=== PATIENT | male | born 1985 | race Caucasian/White ===

== ENCOUNTER 2024-11-27 14:45 | Emergency (ER) | payer MEDICAID ==
[~2024-11-27] VITALS: Ht 180.3 cm; Wt 81.0 kg
[2024-11-27 15:47] LABS: BILIRUBIN,URINE NEGATIVE (Neg); CLARITY,URINE CLEAR (Clear); COLOR,URINE YELLOW (Yellow); GLUCOSE, URINE NEGATIVE (Neg); KETONES,URINE NEGATIVE (Neg); LEUKOCYTE ESTERASE ,URINE NEGATIVE (Neg); NITRITES, URINE NEGATIVE (Neg); OCCULT BLOOD,URINE NEGATIVE (Neg); PROTEIN,URINE NEGATIVE (Neg); UROBILINOGEN,URINE 0.2 E.U/dL (0.2-1.0)
[2024-11-27 15:49] LABS: UA COLLECTION TYPE CLN CATCH MIDSTREAM
[2024-11-27 17:38] LABS: BASOPHILS # (AUTO) 0.1 X10'3 (0-0.2); BASOPHILS % (AUTO) 0.5 % (0-1); EOSINOPHILS % (AUTO) 0.3 % (0-6); HEMATOCRIT 42.3 % (42.0-52.0); HEMOGLOBIN 14.4 g/dl (14.0-17.9); LYMPHOCYTES # (AUTO) 1.6 X10'3 (1.1-4.8); LYMPHOCYTES % (AUTO) 14.8 % (21-51); MEAN CORPUSCULAR HEMOGLOBIN 31.9 PG (27.0-31.0); MEAN CORPUSCULAR HGB CONC 34.1 g/dL (33.0-36.5); MEAN CORPUSCULAR VOLUME 93.5 FL (78-98); MEAN PLATELET VOLUME 8.2 FL (7.4-10.4); MONOCYTES # (AUTO) 0.9 X10'3 (0-0.9); MONOCYTES % (AUTO) 8.1 % (2-12); NEUTROPHILS # (AUTO) 8.1 X10'3 (1.8-7.7); NEUTROPHILS % (AUTO) 76.3 % (42-75); PLATELET COUNT 286 X10'3 (140-440); RED BLOOD COUNT 4.52 X10'6 (4.70-6.10); RED CELL DISTRIBUTION WIDTH 13.8 % (11.5-14.5); WHITE BLOOD COUNT 10.7 X10'3 (4.5-11.0)
[2024-11-27] MEDS: ketorolac trometh 30MG/ML vial 30 MG/ML VIAL IM ONE (17:51)
[2024-11-27 17:53] LABS: ALANINE AMINOTRANSFERASE 42 U/L (12-78); ALBUMIN/GLOBULIN RATIO 1.2 (1.1-1.5); ALKALINE PHOSPHATASE 76 IU/L (46-116); ANION GAP 5 (8-16); ASPARTATE AMINO TRANSFERASE 32 U/L (10-37); BILIRUBIN,TOTAL 0.4 MG/DL (0.1-1.0); BLOOD UREA NITROGEN 11 MG/DL (7-18); BUN/CREATININE RATIO 14.1 (10.0-20.0); CALCIUM 8.8 MG/DL (8.5-10.1); CHLORIDE 105 MMOL/L (99-107); CREATININE 0.78 MG/DL (0.60-1.10); GLUCOSE 102 MG/DL (70-104); LIPASE 23 U/L (16-77); POTASSIUM 4.3 MMOL/L (3.5-5.1); SODIUM 139 MMOL/L (135-145); TOTAL CARBON DIOXIDE 28.8 MMOL/L (24-32); TOTAL PROTEIN 7.3 G/DL (6.4-8.2); eCRCL 137 ML/MIN; eGFR > 90 ML/MIN
[2024-11-27] MEDS ORDERED: FLO0.4C PO (18:47)
[2024-11-27] MEDS ORDERED: IBUP-1985 PO (18:47)
[2024-11-27 19:02] VITALS: BP 126/85; PULSE 63; RESP 16; TEMP 98.8; O2SAT 98
== END 2024-11-27 19:10 | disposition home or self-care (01) ==
LOC: ER 14:46
DX: R10.9 Unspecified abdominal pain (principal)
CPT/HCPCS: 36415; 76770; 80053; 81003; 83690; 85025; 96372; 99285; J1885

== ENCOUNTER 2025-10-21 18:58 | Emergency (ER) | payer MEDICAID ==
[~2025-10-21] VITALS: Ht 180.3 cm; Wt 81.7 kg
[~2025-10-21 18:58] MED LIST: IBUP600T52 PO
--- NOTE | 2025-10-21 19:51 | RADIOLOGY REPORT ---
PROCEDURE: CT [facility] Study Date and Requested Time: 10/21/2025 07:22 PM History: HEAD TRAUMA W/ LOC COMPARISON: None Dose: CTDI: 60.97 mGy DLP: 1180.72 mGycm TECHNIQUE: Multiplanar images obtained through the brain without intravenous contrast. FINDINGS: Normal brain volume and formation. Mild chronic small vessel ischemic changes. No hemorrhages, masses, mass effect, midline shift, herniation or cytotoxic edema following a large vascular territory. No intra-axial or extra-axial fluid collections. No evidence of hydrocephalus. The basal cisterns are patent. The pituitary gland, sella and parasellar regions are unremarkable. The cerebellar tonsils are in normal position. The cerebellum is unremarkable. The orbits and globes are unremarkable. The paranasal sinuses and mastoids are clear. There are no worrisome calvarial lesions. Mild Left parietal scalp hematoma. IMPRESSION: No evidence of acute intracranial abnormality.
--- NOTE | 2025-10-21 20:10 | RADIOLOGY REPORT ---
EXAM: CT CT CERVICAL SPINE INDICATION: HEAD TRAUMA W/ LOC EXAM DATE: 10/21/2025 07:24 PM COMPARISON: None TECHNIQUE: Multiple axial CT images of the cervical spine were obtained using bone algorithm. Axial and coronal reformatting was done. Bone and soft tissue windows were reviewed. Radiation Dose Information: CT Dose: CTDI volume is 18.98 mGy. Dose-length product is 444.69 mGy*cm FINDINGS: The cervical alignment is intact. No acute cervical spine fracture is identified. The vertebral body heights are intact. No suspicious osseous lesions are identified. Multilevel mild degenerative changes of the cervical spine. There is no prevertebral soft tissue swelling. Right palatine tonsilliths. Thyroid gland is unremarkable. Minimal emphysematous changes of the lung apices. IMPRESSION: No evidence of acute cervical spine fracture or traumatic malalignment. All CT scans at this medical facility are performed using dose modulation techniques as appropriate to a performed exam including the following: Automated exposure control was utilized; adjustment of the MA and/or KV according to patient size; and use of iterative reconstruction technique.
[2025-10-21] MEDS: TETanus/Pertussis (Acell)/Diphther VAC/PF (Tdap-Adult) 0.5ml syringe IMVAC ONE (20:20)
--- NOTE | 2025-10-21 20:41 | Physician Documentation ---
History of Present Illness ~ Chief Complaint: Head Injury Stated Complaint: HEAD WOUND Time Seen by MD: 19:59 OK to notify your PCP?: Yes HPI This is a 39-year-old gentleman who presents for evaluation of potential traumatic injuries sustained when he hit himself in the head with a T post pounder. This occurred shortly prior to arrival. Denies loss of consciousness. Reports an immediate onset of severe has a pain that is gradually improving. Denies any nausea or vomiting. Had similar episode of the past. Denies any other symptoms. Tetanus within 5 years?: No Medication Reconciliation Allergies: Coded Allergies: No Known Allergies (Unverified , 11/27/24) Scheduled Ibuprofen (Ibuprofen), 1 TAB PO Q8H Review of Systems ROS 10 point review of systems was performed and unless noted above in HPI is negative for acute process/complaint. Physical Exam Vital Signs: Temperature: 98.0, Heart Rate: 89, Respiratory Rate: 18, BP: 148/86, Pulse Oximetry: 99, Weight: 81.700 Oxygen Flow Rate: 0 Physical Exam GENERAL: Awake, alert, oriented, GCS 15, no apparent distress, non-toxic appearing, answers questions, follows commands appropriately. HEENT: There isn't abrasion to the anterior scalp, no active bleeding at this time, abrasion is a proximally 3 cm in diameter. Inside the abrasion of the this is a Y-shaped laceration with a total length, but 2 cm. normocephalic, pupils equal, extraocular muscles intact, sclerae anicteric, mucus membranes moist, oropharynx is clear, no stridor. NECK: supple, full active range of motion, trachea midline, no thyromegaly, no lymphadenopathy, no JVD. CARDIOVASCULAR: regular rate/rhythm, no murmurs/gallops/rubs, Pulses are 2+ in all extremities and symmetric. Capillary refill less than 2 seconds. PULMONARY: Nonlabored, good air movement ,no respiratory distress, speaking in full sentences, clear to auscultation bilaterally, no wheezing, no ronchi, no rales, no accessory muscle use. GASTROINTESTINAL: Soft, non-tender, non-distended, normal active bowel sounds, no organomegaly, no pulsatile masses, no CVA tenderness. NEUROLOGIC: Lucid with normal mental status. Normal facial symmetry. Moves all extremities symmetrically and with purpose. No truncal ataxia. Speech is fluid without evidence of dysarthria or aphasia, no focal deficits appreciated. MUSCULOSKELETAL: There is full range of motion of all extremities. There is no joint pain or joint swelling or joint erythema. There is no muscle pain or tenderness or swelling. EXTREMITIES: warm, well-perfused, no cyanosis, no clubbing, no edema, no acute deformities. Skin: warm, dry, no rashes or lesions, no jaundice, no petechiae orpurpura. No ecchymosis. PSYCHIATRIC: Normal affect, normal insight, normal concentration. Focused exam: [] Procedures Laceration/Wound Repair Laceration/Wound Repair : Anesthesia: Lidocaine w/ Epi Prep: irrigated by nurse Foreign Body: not identified Repaired: skin Wound Repaired With: estephania Number of Superficial Sutures: 8 Dressing Applied: non-adherent Tolerated Procedure Well?: yes, no complications Progress Results/Orders Results/Orders Orders - PABLO ELMORE DO Ct Head (10/21/25 19:30) Ct Cervical Spine (10/21/25 19:30) Completed Orders - PABLO ELMORE DO Ct Head (10/21/25 19:30) Ct Cervical Spine (10/21/25 19:30) Tetanus/Pertuss/Diph Acell/Pf (Boostrix (10/21/25 20:20) Lidocaine 1% W/Epi 1:100,000 (Xylocaine (10/21/25 21:05) Vital Signs 10/21/25 10/21/25 10/21/25 10/21/25 19:10 19:57 20:00 21:13 Temp 98.0 98.0 98.0 Pulse 92 89 75 Resp 16 18 16 14 B/P (MAP) 148/86 147/92 (110) Pulse Ox 99 98 O2 Flow Rate 0 0 0 Medical Decision Making Additional information obtaine: old records, family Findings Facility Status: ED Holds, [facility] process The plan was discussed with the patient, who demonstrates clear understanding of the plan and is in agreement with the plan unless otherwise noted in the chart. All questions have been answered, all concerns were addressed unless otherwise documented. I was available throughout their ED stay for frequent reassessment and questions. Differential Diagnoses (considered and possible or likely): [Acute traumatic injury, concussion, subdural, subarachnoid, skull fracture, less likely cervical fracture] ??Differential Diagnoses (considered and unlikely, not requiring evaluation currently): [No evidence of lateralizing signs to suspect a stroke] MDM Data Please see [facility] for the following: Independent Historians and external Records Review. Historian: [Patient] Independent Historians: ?[Record review, ] Medication Management: [Reviewed medication list] Social History and determinants: [Reviewed] Please see the body of the note for the following: Any independent interpretations of ECG, imaging studies. All vitals signs/haemodynamics, ordered tests were independently reviewed and interpreted by myself. Nursing triage complaint and vitals reviewed, additional nursing notes were reviewed as available and I agree unless otherwise noted or documented in con tradiction in the chart Vital Signs: Independently reviewed Labs: Independently interpreted Imaging: Independently interpreted Old Medical Records: Independently reviewed, see [facility] for relevant summary and information Pulse Oximetry: [99%] interpreted as [normal on room air] by me [[employer]: [Regular Rate, Regular rhythm, no ectopy, NSR] reviewed and interpreted by me] Additionally notably showing: [Hemodynamically stable. CT head shows no acute intracranial bleed or skull fracture. CT C-spine shows no fracture or subluxation.] Tests considered but not ordered include: [Hematologic workup has been considered but does not appear to be necessary given mechanical nature of the injury.] Social Determinants of Health Impact: Patient was evaluated in [facility], or [facility] [place] healthcare due to below par ratio of patient to medical providers. [] Comorbid Conditions Impacting Present Evaluation and Care/Treatment: [None] Management Discussions with other Healthcare Providers: [None] Treatment and Disposition Medication Management (Given or considered): [Tetanus update]. See EMR for details Consideration for Hospitalization/Escalation/Deescalation of Care: Admission for observation has been considered, [however the patient is able to tolerate p.o., their symptoms are controlled, they are able to rely on oral medications, and t heir chief complaint/diagnosis can be managed on outpatient basis.] ?ED Course:?[Laceration was repaired. Patient tolerated procedure well.] ?Shared decision making:?[Patient is hemodynamically stable for discharge home with follow with their primary care provider. [ ] Specific and cautious return precautions provided and discussed with full understanding. Any incidental findings were also discussed and follow up recommendations given. [] All questions answered. Patient/family were able to verbalize back return precautions. Patient/family agree to plan. Copies of imaging and laboratory studies were provided.] Code status:?FULL Please see the full Electronic Medical Record for full details of nursing documentation, medications list, other records of complete past medical history and conditions, vital signs, laboratory studies, and any radiologic study interpretations by radiologists. Portions of this note were completed using Bjond dictation software and as a result there may exist minor errors in spel ling. I have reviewed elements of past family and social history and agree as included in note. Fifteen thinks he has been Differential Dx:Considerations: Include: Closed head injury, Cervical spine injury, Skull facture, Fracture, Abrasion, Contusion, Laceration; Unlikey: Foreign body, Intoxication-alcohol, Intoxication-other drug, Substance abuse disorder, Personality disorder, Non-accidental trauma Departure Disposition: 01 HOME / SELF CARE / HOMELESS Impression: Primary Impression: Closed head injury Additional Impressions: Scalp laceration Scalp abrasion Acute traumatic pain Tetanus toxoid inoculation Condition: Improved Discharge Instructions: Concussion, Adult, Laceration Care, Adult Additional Instructions: [place] out in 10 days. Referrals: NO PRIMARY CARE PROVIDER (PCP) Education Educated: Patient Educated regarding: diagnosis, treatment, prognosis, need for follow up Signature Scribe Signature: No scribe Attestation: The note accurately reflects work and decisions made by me.Pablo Elmore DO 10/21/25 20:42 PABLO ELMORE DO Oct 21, 2025 20:41
[2025-10-21] MEDS: LIDOcaine 1% W/epiNEPHrine 1:100,000 20ml vial SQ ONE (21:24)
[2025-10-21 21:54] VITALS: BP 147/92; PULSE 78; RESP 18; TEMP 98; O2SAT 99
== END 2025-10-21 21:56 | disposition home or self-care (01) ==
LOC: ER 18:58
DX: S01.01XA Laceration without foreign body of scalp, initial encounter (principal); S09.90XA Unspecified injury of head, initial encounter; G89.11 Acute pain due to trauma; X58.XXXA Exposure to other specified factors, initial encounter; Y93.89 Activity, other specified; Y92.89 Other specified places as the place of occurrence of the external cause; Y99.8 Other external cause status
CPT/HCPCS: 12001; 99284; A6449

== ENCOUNTER 2025-10-22 16:38 | Emergency (ER) | payer MEDICAID ==
[~2025-10-22] VITALS: Ht 180.3 cm; Wt 81.1 kg
[2025-10-22 16:45] VITALS: BP 116/76; PULSE 85; RESP 18; O2SAT 98
--- NOTE | 2025-10-22 16:52 | Physician Documentation ---
History of Present Illness ~ Chief Complaint: Nausea Stated Complaint: N/V Time Seen by MD: 17:45 OK to notify your PCP?: Yes HPI This is a 39-year-old male who presents with an episode of sudden onset persistent vomiting lasting approximately 15 minutes, patient reports that he was seen at this emergency department yesterday after sustaining a head injury caused by a T post pounder striking him in the top of the head. Patient does report that he drank a coffee product and a Gatorade just prior to the episode of vomiting, stating I chugged a Gatorade, he reports this episode of vomiting was approximately 2-1/2 hours prior to presenting to the emergency department. Patient reports that all symptoms resolved after vomiting reports feeling well on physical exam reporting no other acute symptoms or concerns. Tetanus within 5 years?: No Medication Reconciliation Allergies: Coded Allergies: No Known Allergies (Unverified , 11/27/24) Scheduled Ibuprofen (Ibuprofen), 1 TAB PO Q8H Past Medical History Past Medical History: No Pertinent History Review of Systems ROS As stated above in the HPI, otherwise all systems are reviewed and negative. Physical Exam Vital Signs: Temperature: 97.9, Source: Temporal, Heart Rate: 85, Respiratory Rate: 18, BP: 116/76, Pulse Oximetry: 98, Weight: 81.100 Oxygen Flow Rate: 0 Physical Exam VITALS: Reviewed and as above. GENERAL: Alert, nontoxic appearing, no apparent distress. HEENT: Pupils 2 mm, PERRLA RESPIRATORY: No increased work of breathing, no respiratory distress, speaking in full clear sentences SKIN: Stapled laceration to top of scalp with minimal surrounding erythema and no purulent discharge NEURO: GCS 15, A&O x4 Progress Results/Orders Results/Orders Orders - JOSÉ LUONG Ct Head (10/22/25 16:50) Completed Orders - JOSÉ LUONG Ct Head (10/22/25 16:50) Vital Signs 10/22/25 10/22/25 16:45 18:04 Temp 97.9 97.9 Pulse 85 Resp 18 B/P (MAP) 116/76 Pulse Ox 98 O2 Flow Rate 0 EKG/XRAY/CT/US/VASC/MRI CT : Impression Exam: CT HEAD CT CT HEAD INDICATION: Persistent vomiting post head trauma EXAM DATE: 10/22/2025 04:48 PM COMPARISON: CT CT HEAD on DOS: 10/21/25 TECHNIQUE: CT of the head without intravenous contrast. RADIATION DOSE: CTDIvol: 61.5 mGy, DLP: 1128 mGy*cm FINDINGS: There is no intracranial hemorrhage. There is no extra-axial fluid, mass, mass effect or midline shift. The ventricles are midline and normal in size. Basilar cisterns are patent. Guthrie-white differentiation is maintained. The paranasal sinuses and mastoids are well-pneumatized. Imaged portion of the orbits are unremarkable. Left parietal scalp surgical clips. IMPRESSION: No intracranial hemorrhage or mass effect. Electronically Signed by:MOSES BAKER MD Date & Time: 10/22/251719 Dictated by: MOSES BAKER MD Dictation date and time: 10/22/251719 I have reviewed and agree with the radiology report. I have reviewed and interpreted the imaging as: No intracranial hemorrhage Medical Decision Making Additional information obtaine: N/A Findings MSE performed in triage and patient returned to ED lobby by nursing staff to await available ED room This 39-year-old male presented back to the emergency department after sustaining a head injury yesterday due to concerns for episode of vomiting which you reported as constant for 15 minutes. Due to prolonged vomiting following recent head injuries CT was indicated, CT did not demonstrate evidence of intracranial hemorrhage and patient's physical exam was benign, it is reassuring patient reports all symptoms have resolved after the short period of vomiting. Suspect patient's vomiting may been related to his beverage intake. No further testing or evaluation indicated as patient reports no symptoms, I have discussed with the patient treatment for nausea though he reports nausea his present, with shared decision-making no finishing additional workup or treatment necessary. Patient provided careful return to care precautions, follow up instructions, and home care instructions which he and he family member present verbalized understanding Differential Dx:Considerations: Include: Closed head injury, Cervical spine injury, Skull facture, Fracture, Contusion, Laceration, Intoxication-alcohol, Intoxication-other drug, Substance abuse disorder, Personality disorder, Other (Intracranial hemorrhage, food poisoning,) Departure Time of Disposition: 17:55 Disposition: 01 HOME / SELF CARE / HOMELESS Impression: Primary Impression: Vomiting Qualified Codes: R11.10 - Vomiting, unspecified Condition: Improved Discharge Instructions: Nausea and Vomiting, Adult, [id number] Additional Instructions: It is reassuring all your symptoms have resolved, your repeat head CT did not show bleeding in your skull. Please follow up with your primary care provider in the next few days. Please return to the emergency department for any new or worsening concerning symptoms. Referrals: NO PRIMARY CARE PROVIDER (PCP) Education Educated: Patient Educated regarding: diagnosis, treatment, prognosis, need for follow up Signature Scribe Signature: No scribe Attestation: The note accurately reflects work and decisions made by me.MARCUS Hedrick 10/23/25 09:29 JOSÉ LUONG Oct 22, 2025 16:52
--- NOTE | 2025-10-22 17:22 | RADIOLOGY REPORT ---
CT CT HEAD INDICATION: Persistent vomiting post head trauma EXAM DATE: 10/22/2025 04:48 PM COMPARISON: CT CT HEAD on DOS: 10/21/25 TECHNIQUE: CT of the head without intravenous contrast. RADIATION DOSE: CTDIvol: 61.5 mGy, DLP: 1128 mGy*cm FINDINGS: There is no intracranial hemorrhage. There is no extra-axial fluid, mass, mass effect or midline shift. The ventricles are midline and normal in size. Basilar cisterns are patent. Guthrie-white differentiation is maintained. The paranasal sinuses and mastoids are well-pneumatized. Imaged portion of the orbits are unremarkable. Left parietal scalp surgical clips. IMPRESSION: No intracranial hemorrhage or mass effect.
[2025-10-22 18:04] VITALS: TEMP 97.9
== END 2025-10-22 18:05 | disposition home or self-care (01) ==
LOC: ER 16:38
DX: S01.01XA Laceration without foreign body of scalp, initial encounter (principal); R11.10 Vomiting, unspecified; Z79.899 Other long term (current) drug therapy; W22.8XXA Striking against or struck by other objects, initial encounter; Y93.89 Activity, other specified; Y92.89 Other specified places as the place of occurrence of the external cause; Y99.8 Other external cause status
CPT/HCPCS: 70450; 99284

== ENCOUNTER 2025-11-07 11:39 | Emergency (ER) | payer MEDICAID ==
[~2025-11-07] VITALS: Ht 180.3 cm; Wt 83.2 kg
[2025-11-07 11:44] VITALS: BP 129/86; PULSE 98; RESP 16; O2SAT 100
--- NOTE | 2025-11-07 11:54 | Physician Documentation ---
History of Present Illness Stated Complaint: SUTURE REMOVAL Time Seen by MD: 11:50 HPI The patient is a very pleasant 40-year-old male that presents to the emergency department for evaluation of staple removal. Patient had 8 estephania placed in his head approximately 10 days ago. Site looks appropriate without erythema swelling drainage no signs of infection at this time. Will be removed patient will be provided with discharge education and instruction to follow up with his primary care provider or return to the emergency department with any worsening of his current symptoms or any additional concerning symptoms that we discussed here today. Medication Reconciliation Allergies: Coded Allergies: No Known Allergies (Unverified , 11/07/25) Scheduled Ibuprofen (Ibuprofen), 1 TAB PO Q8H Past Medical History Past Medical History: No Pertinent History Review of Systems ROS As stated above in the HPI, otherwise all systems are reviewed and negative. Physical Exam Physical Exam VITALS: Reviewed and as above. GENERAL: Alert, no apparent distress. HEENT: Normocephalic, atraumatic, PERRL, EOMI, dry mucosa, no erythema SKIN: Warm and dry, no rash, estephania noted to the superior portion of the head, 8 estephania removed complication, no erythema swelling drainage or signs of infection noted during examination. NEURO: Oriented x4, No motor or sensory deficit PSYCH: Normal mood and affect, no agitation Medical Decision Making Additional information obtaine: other Findings The patient is a very pleasant 40-year-old male that presents to the emergency department for evaluation of staple removal. Patient had 8 estephania placed in his head approximately 10 days ago. Site looks appropriate without erythema swelling drainage no signs of infection at this time. Will be removed patient will be provided with discharge education and instruction to follow up with his primary care provider or return to the emergency department with any worsening of his current symptoms or any additional concerning symptoms that we discussed here today. Differential Dx:Considerations: Other Departure Disposition: 01 HOME / SELF CARE / HOMELESS Impression: Primary Impression: Removal of estephania Condition: Stable Discharge Instructions: Wound Closure With Stitches, [place], Skin Glue, and Tape Strips Additional Instructions: The patient is a very pleasant 40-year-old male that presents to the emergency department for evaluation of staple removal. Patient had 8 estephania placed in his head approximately 10 days ago. Site looks appropriate without erythema sw elling drainage no signs of infection at this time. Will be removed patient will be provided with discharge education and instruction to follow up with his primary care provider or return to the emergency department with any worsening of his current symptoms or any additional concerning symptoms that we discussed here today. Referrals: NO PRIMARY CARE PROVIDER (PCP) Education Educated: Patient Educated regarding: diagnosis, treatment, need for follow up Signature Scribe Signature: A Attestation: Scribed for Darline Haji by MARCUS Cassidy . 11/07/25 13:06 DARLINE HAJI Nov 07, 2025 11:54
[2025-11-07 13:34] VITALS: TEMP 97.1
== END 2025-11-07 12:30 | disposition home or self-care (01) ==
LOC: ER 11:39
DX: S01.91XD Laceration without foreign body of unspecified part of head, subsequent encounter (principal); X58.XXXD Exposure to other specified factors, subsequent encounter; Z79.899 Other long term (current) drug therapy
CPT/HCPCS: 99282